=== PATIENT | female | born 1960 | race Caucasian/White ===

== ENCOUNTER 2019-04-02 10:43 | Emergency (ER) | payer SELFPAY ==
[2019-04-02] MEDS ORDERED: Ketorolac *IM* INJ* 60 MG/2 ML VIAL IM ONE (11:58)
[2019-04-02] MEDS ORDERED: HYDROcodone/ACETAMIN 5-325 MG* 1 TAB PO ONE (11:58)
[2019-04-02] MEDS ORDERED: predniSONE TAB* 20 MG PO ONE (11:58)
[2019-04-02] MEDS ORDERED: Lidocaine PATCH 5%* 1 PATCH TRANSDERM SCH (12:00)
--- NOTE | 2019-04-02 12:00 | ED ---
Back Pain - HPI Summary HPI Summary: This pt is a 58 y/o female presenting to [facility] c/o lower back pain radiating to her left leg since 3 days ago. Pt reports she has hx of sciatica and has had this pain in the past. She states she had a bowel movement about 3 days ago and after this she began to have lower back pain. Currently she rates her pain 8 to 9 out of 10 in severity. She reports some chills. Denies weakness, numbness, or tingling in lower extremities, urinary or bowel incontinence/dysfunction. Denies fever, diaphoresis, erythema of eyes, sore throat, chest pain, SOB, cough , abd pain, nausea, vomiting, dysuria, hematuria, myalgia, edema, rash, or dizziness. Pt has seen pain management in the past and was placed on Mentcle- 10 TID but this was about 4-5 years ago in [place]. She has also followed up with physical therapy in the past but reports it was not helpful. Her current medications include levothyroxine, bupropion, Abilify, pravastatin. Pt admits to smoking 10 cigarettes a day. - History of Current Complaint Chief Complaint: EDExtremityLower Stated Complaint: BACK PAIN PER PT Time Seen by Provider: 04/02/19 11:43 Hx Obtained From: Patient Onset/Duration: Lasting Days, Still Present Onset/Duration: Started Days Ago, Still Present Timing: Lasting Days Back Pain Location: Is Discrete @ - lower back, Radiates To - left leg Severity Currently: Severe Pain Intensity: 8 Pain Scale Used: 0-10 Numeric Aggravating Symptom(s): Nothing Alleviating Symptom(s): Nothing Associated Signs And Symptoms: Negative: Fever, Weakness, Numbness, Tingling, Bladder Incontinence, Bowel Incontinence - Allergies/Home Medications Allergies/Adverse Reactions: Allergies Allergy/AdvReac Type Severity Reaction Status Date / Time No Known Allergies Allergy Verified 04/02/19 11:02 PMH/Surg Hx/FS Hx/Imm Hx Endocrine/Hematology History: Reports: Hx Thyroid Disease Denies: Hx Diabetes Cardiovascular History: Reports: Hx Hypercholesterolemia Denies: Hx Hypertension Musculoskeletal History: Reports: Other Musculoskeletal History - sciatica - Surgical History Surgical History: Yes Surgery Procedure, Year, and Place: Bariatric surgery about 20 years ago. Tubal ligation Infectious Disease History: No Infectious Disease History: Denies: Traveled Outside the [place] in Last 30 Days - Family History Known Family History: Negative: Cardiac Disease, Hypertension, Diabetes - Social History Alcohol Use: None Substance Use Type: Reports: None Smoking Status (MU): Current Every Day Smoker Review of Systems Positive: Chills. Negative: Fever Negative: Erythema Negative: Sore Throat Negative: Chest Pain Negative: Shortness Of Breath, Cough Negative: Abdominal Pain, Vomiting, Nausea Negative: dysuria, hematuria, incontinence Musculoskeletal: Other - POSITIVE: lower back pain Negative: Myalgia, Edema Negative: Rash Neurological: Other - NEGATIVE: dizziness Negative: Weakness, Paresthesia, Numbness All Other Systems Reviewed And Are Negative: Yes Physical Exam - Summary Physical Exam Summary: Constitutional: Well-developed, Well-nourished, Alert. (-) Distressed Skin: Warm, Dry HENT: Normocephalic; Atraumatic Eyes: Conjunctiva normal Neck: Musculoskeletal ROM normal neck. (-) JVD, (-) Stridor, (-) Tracheal deviation Cardio: Rhythm regular, rate normal, Heart sounds normal; Intact distal pulses; The pedal pulses are 2+ and symmetric. Radial pulses are 2+ and symmetric. (-) Murmur Pulmonary/Chest wall: Effort normal. (-) Respiratory distress, (-) Wheezes, (-) Rales Abd: Soft, (-) Tenderness, (-) Distension, (-) Guarding, (-) Rebound Musculoskeletal: Full lower extremity strength 5/5. No CVA tenderness. Lymph: (-) Cervical adenopathy Neuro: Alert, Oriented x3 Psych: Mood and affect Normal Triage Information Reviewed: Yes Vital Signs On Initial Exam: Initial Vitals Temp Pulse Resp BP Pulse Ox 98.1 F 66 18 115/91 97 04/02/19 10:58 04/02/19 10:58 04/02/19 10:58 04/02/19 10:58 04/02/19 10:58 Vital Signs Reviewed: Yes Procedures - Sedation Patient Received Moderate/Deep Sedation with Procedure: No Diagnostics - Vital Signs Vital Signs Temp Pulse Resp BP Pulse Ox 04/02/19 10:58 98.1 F 66 18 115/91 97 - Laboratory Lab Statement: Any lab studies that have been ordered have been reviewed, and results considered in the medical decision making process. Back Pain Course/Dx - Course Assessment/Plan: Pt is a 58 y/o female, with hx of sciatica, presenting to [facility] c/o lower back pain radiating to her left leg since 3 days ago. She states she had a bowel movement about 3 days ago and after this she began to have lower back pain. Currently she rates her pain 8 to 9 out of 10 in severity. She reports some chills. Denies weakness, numbness, or tingling in lower extremities, urinary or bowel incontinence/dysfunction. No signs or symptoms of cauda equina syndrome. In the ED course the pt was given Mentcle, Toradol, Lidocaine patch, prednisone. Pt will be discharged home with follow up from [facility]. She was given prescriptions for Mentcle, lidocaine patch , naproxen, and prednisone. She was instructed to return to the ED for any new or worsening symptoms. - Diagnoses Provider Diagnoses: Sciatica Discharge ED - Sign-Out/Discharge Documenting (check all that apply): Patient Departure - Discharge home - Discharge Plan Condition: Stable Disposition: HOME Prescriptions: HYDROcodone/ACETAMIN 5-325 MG* [Mentcle 5-325 TAB*] 1 tab PO Q6H PRN #15 tab MDD 4 PRN Reason: Pain - Severe Lidocaine PATCH 5%* [Lidoderm 5% Patch*] 1 patch TRANSDERM DAILY #14 patch Naproxen TAB* [Naprosyn 250 mg TAB*] 500 mg PO Q8H PRN #15 tab PRN Reason: Pain - Severe predniSONE TAB* [Deltasone TAB*] 50 mg PO DAILY #4 tab Patient Education Materials: Sciatica (ED) Referrals: [facility] [Outside] Additional Instructions: Follow up with your [facility] in 2-3 days. RETURN TO THE EMERGENCY DEPARTMENT FOR CHANGING OR WORSENING SYMPTOMS. - Attestation Statements Document Initiated by Scribe: Yes Documenting Scribe: Claudia Coe Provider For Whom Scribe is Documenting (Include Credential): Bryce Hensley MD Scribe Attestation: Claudia Louie, scribed for Bryce Hensley MD on 04/02/19 at 1232. Status of Scribe Document: Ready
[2019-04-02 12:26] VITALS: BP 120/89
[2019-04-02] MEDS ORDERED: Lidocaine Patch REMOVE* 1 NOTE MISC SCH (21:00)
== END 2019-04-02 12:25 | disposition home or self-care (01) ==
LOC: ED 10:43
DX: M54.42 Lumbago with sciatica, left side (principal); R68.83 Chills (without fever); E07.9 Disorder of thyroid, unspecified; E78.00 Pure hypercholesterolemia, unspecified; F17.200 Nicotine dependence, unspecified, uncomplicated
CPT/HCPCS: 96372; 99283; A9270-GY; J1885; J7512